=== PATIENT | female | born 1995 | race Hispanic/Latino ===

== ENCOUNTER 2017-12-17 02:26 | Emergency (ER) | payer SELFPAY ==
[2017-12-17 02:42] VITALS: BP 139/92; TEMP 97.6
[2017-12-17] MEDS ORDERED: IBUPROFEN 200 MG TAB PO ONE (02:48)
[2017-12-17] MEDS ORDERED: NEO/POLY/HC OTIC SUSP 10 ML BTTL RIGHT_EAR ONE (02:48)
--- NOTE | 2017-12-17 02:53 | ED.PDOC ---
History of Present Illness - General Chief Complaint: ENT Problem Stated Complaint: Right Ear Pain Time Seen by Provider: 12/17/17 02:48 Source: patient Exam Limitations: no limitations - History of Present Illness Initial Comments: the patient is a 22-year-old female presenting to emergency room secondary to right ear pain present for 24-48 hours. No other symptoms. Mild drainage. Timing/Duration: 24 hours Severity: moderate Improving Factors: nothing Worsening Factors: nothing Associated Symptoms: denies symptoms Allergies/Adverse Reactions: Allergies NO KNOWN ALLERGY Allergy (Verified 07/31/12 13:36) Home Medications: Ambulatory Orders Vit W/ Ferrous Fumara [Vitafol-Ob] 1 tab PO DAILY 06/03/14 Ibuprofen [Motrin Tab] 600 mg PO Q8H #20 tab 06/05/14 Percy/Poly/Hc Otic Susp [Cortisporin Otic Susp] 4 drop RIGHT_EAR Q6H #7 days 12/17 Review of Systems - Review of Systems Constitutional: States: no symptoms reported EENTM: States: see HPI Respiratory: States: no symptoms reported Cardiology: States: no symptoms reported Gastrointestinal/Abdominal: States: no symptoms reported Genitourinary: States: no symptoms reported Musculoskeletal: States: no symptoms reported Skin: States: no symptoms reported Neurological: States: no symptoms reported Endocrine: States: no symptoms reported All other Systems: No Change from Baseline Past Medical History (General) - Patient Medical History Hx Seizures: No Hx Stroke: No Hx Dementia: No Hx Asthma: No Hx of COPD: No Hx Cardiac Disorders: No Hx Congestive Heart Failure: No Hx Pacemaker: No Hx Hypertension: No Hx Thyroid Disease: No Hx Diabetes: No Hx Gastroesophageal Reflux: No Hx Renal Disease: No Hx Cancer: No Hx of HIV: No Hx Hepatitis C: No Hx MRSA: No Surgical History: no surgical history - Vaccination History Hx Tetanus, Diphtheria Vaccination: Yes Hx Influenza Vaccination: Yes Hx Pneumococcal Vaccination: No Immunizations Up to Date: Yes - Social History Hx Tobacco Use: No Hx Alcohol Use: No Hx Substance Use: No Hx Substance Use Treatment: No Hx Depression: No Feels Threatened In Home Enviroment: No Feels Threatened In a Relationship: No Hx Physical Abuse: No Hx Emotional Abuse: No Hx Suspected Abuse: No - Activities of Daily Living Hospice Agency (if applicable):: None - Female History Patient is a Female of Child Bearing Age (10 -59 yrs old): Yes Hx Last Menstrual Period: 08/21/13 Expected Date of Delivery:: 06/15/14 - Triage Comment ED Triage Comment: Pt c/o right ear pain that started on 12/15/17 and has gradually gotten worse. Pt states pain is 8/10. Family Medical History - Family History Mother Family History: No Known Name: Nicole Age (years): 40 Living Status: Still Living Father Name: Jonathan Age (years): 45 Living Status: Still Living Hx Family Hypertension: Yes Physical Exam - Physical Exam General Appearance: Alert, Comfortable, No apparent distress Eye Exam: bilateral normal Ears, Nose, Throat: hearing grossly normal, other - ear canal on the right is significantly swollen. There is some drainage. History of palpation. Unable to see tympanic membrane. Left ear is normal. 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 She has been given a dose of Motrin and started on Cortisporin Ophthalmic drops. She needs to continue these for drops to the right ear for 7 days. A prescription has been written. ER warnings were given for any significant worsening. Departure - Departure Clinical Impression: Otitis externa Qualifiers: Otitis externa type: swimmer's ear Chronicity: acute Laterality: right Qualified Code(s): H60.331 - Swimmer's ear, right ear Disposition: Discharge to Home or Self Care Condition: Good Departure Forms: ED Discharge - Pt. Copy, Patient Portal Self Enrollment Instructions: DI for Otitis Externa Diet: regular diet Activity: increase activity as tolerated Referrals: Jay Lee MD [Primary Care Provider] - 1-2 Weeks Prescriptions: Percy/Poly/Hc Otic Susp [Cortisporin Otic Susp] 4 drop RIGHT_EAR Q6H #7 days Home Medications: Ambulatory Orders Vit W/ Ferrous Fumara [Vitafol-Ob] 1 tab PO DAILY 06/03/14 Ibuprofen [Motrin Tab] 600 mg PO Q8H #20 tab 06/05/14 Percy/Poly/Hc Otic Susp [Cortisporin Otic Susp] 4 drop RIGHT_EAR Q6H #7 days 12/17 Additional Instructions: patient is a 22-year-old female with right acute otitis externa. She has been given a dose of Motrin and started on Cortisporin Ophthalmic drops. She needs to continue these for drops to the right ear for 7 days. A prescription has been written. ER warnings were given for any significant worsening.
[2017-12-17] MEDS ORDERED: ACETAMINOPHEN 325 MG TAB ONE (02:55)
[2017-12-17] MEDS ORDERED: ACETAMINOPHEN 325 MG TAB PO ONE (02:56)
[2017-12-17 03:02] VITALS: O2SAT 100
== END 2017-12-17 03:02 | disposition home or self-care (01) ==
LOC: ER 02:26
DX: H60.331 Swimmer's ear, right ear (principal)